=== PATIENT | male | born 1985 | race Two or more races ===

== ENCOUNTER 2019-01-09 10:31 | Emergency (ER) | payer BC, OTHER ==
[~2019-01-09] VITALS: Ht 180.3 cm; Wt 115.7 kg
[2019-01-09 10:38] VITALS: BP 124/76
[2019-01-09] MEDS ORDERED: KETOROLAC TROMETH 60MG/2ML VIAL IM ONE (11:15)
[2019-01-09] MEDS ORDERED: ACETAMINOPHEN 500 MG TAB PO ONE (11:30)
[2019-01-09 11:31] LABS: Urine Bacteria NONE SEEN /hpf (None Seen); Urine Blood 1+ /uL (Negative); Urine Specific Gravity 1.019 (1.001-1.035); Urine WBC 1 /hpf (0 - 3)
== END 2019-01-09 13:46 | disposition home or self-care (01) ==
LOC: ER 10:31
DX: N39.0 Urinary tract infection, site not specified (principal)
CPT/HCPCS: 74176; 81001; 96372; 99284; J1885

== ENCOUNTER 2024-02-17 20:12 | Emergency (ER) | payer BC ==
[~2024-02-17] VITALS: Ht 180.3 cm; Wt 119.9 kg
[2024-02-17 20:22] VITALS: BP 145/88; PULSE 98; RESP 16; TEMP 98.9; O2SAT 96
[2024-02-17] MEDS: KETOROLAC TROMETH 60MG/2ML VIAL IM ONE (22:19)
[2024-02-17] MEDS: TETANUS-DIPTH-ACEL PERTUSSIS 0.5ML SYR Tdap IM ONE (22:19)
[2024-02-17] MEDS ORDERED: AMOX875T4 PO (22:30)
[2024-02-17] MEDS ORDERED: IBUP-1456 PO (22:30)
== END 2024-02-17 22:54 | disposition home or self-care (01) ==
LOC: ER 20:12
DX: S90.212A Contusion of left great toe with damage to nail, initial encounter (principal); S90.222A Contusion of left lesser toe(s) with damage to nail, initial encounter; W20.8XXA Other cause of strike by thrown, projected or falling object, initial encounter; Y93.89 Activity, other specified; Y92.89 Other specified places as the place of occurrence of the external cause; Y99.8 Other external cause status
CPT/HCPCS: 11740; 73620; 90471; 90715; 96372; 99284; J1885